=== PATIENT | male | born 1935 | race Caucasian/White ===

== ENCOUNTER 2018-03-26 13:08 | Inpatient (IN) ==
[2018-03-26] MEDS ORDERED: Norepinephrine Inj 4 MG/4 ML Ampul ONE (13:23)
[2018-03-26 13:33] LABS: Baso # (Auto) 0.1 th/mm3 (0.0-0.2); Baso % (Auto) 0.8 % (0.0-2.0); Eos # (Auto) 0.1 th/mm3 (0.0-0.4); Eos % (Auto) 0.9 % (0.0-4.0); Hematocrit 35.6 % (39.0-51.0); Hemoglobin 12.3 gm/dL (13.0-17.0); Lymph # (Auto) 3.1 th/mm3 (1.0-4.8); Lymph % (Auto) 29.4 % (9.0-44.0); Mean Corpuscular HGB Conc 34.6 % (32.0-36.0); Mean Corpuscular Hemoglobin 32.8 pg (27.0-34.0); Mean Corpuscular Volume 94.8 fL (80.0-100.0); Mean Platelet Volume 9.4 fL (7.0-11.0); Mono # (Auto) 0.9 th/mm3 (0.0-0.9); Mono % (Auto) 8.9 % (0.0-8.0); Neut # (Auto) 6.3 th/mm3 (1.8-7.7); Platelet Count 238 th/mm3 (150-450); Red Blood Count 3.76 mil/mm3 (4.50-5.90); Red Cell Distribution Width 13.9 % (11.6-17.2); White Blood Count 10.4 th/mm3 (4.0-11.0)
[2018-03-26 13:34] LABS: ABG Base Excess 5.2 mmol/L (-2-2); ABG PCO2 27 mmHg (38-42); ABG PO2 389 mmHg (61-120)
--- NOTE | 2018-03-26 13:36 | XR ---
EXAM DATE: 03/26/2018 1:33 PM EDT AGE/SEX: 89 years / Male INDICATIONS: Trauma Alert Post Code CLINICAL DATA: This is the patient's initial encounter. Patient reports that signs and symptoms have been present for 1 day and indicates a pain score of Nonresponsive. MEDICAL/SURGICAL HISTORY: Non-responsive. Non-responsive. COMPARISON: No prior exams available for comparison. FINDINGS: ETT at the level of the clavicles. Mild diffuse interstitial prominence. No significant pneumothorax or effusion. Cardiomediastinal contours are within normal limits given the portable technique. Osseou s structures are grossly intact. CONCLUSION: 1. ETT in good position. 2. No acute traumatic abnormality. Electronically signed by: Cristian Martinez MD 03/26/2018 1:35 PM EDT
[2018-03-26 13:42] LABS: Activated Partial Thrombo Time 25.3 sec (24.3-30.1); INR 1.2 Ratio; Prothrombin Time 11.7 sec (9.8-11.6)
--- NOTE | 2018-03-26 13:55 | CT ---
EXAM DATE: 03/26/2018 1:50 PM EDT AGE/SEX: 89 years / Male INDICATIONS: Fall, trauma alert CLINICAL DATA: This is the patient's initial encounter. Patient reports that signs and symptoms have been present for 1 day and indicates a pain score of Nonresponsive. MEDICAL/SURGICAL HISTORY: None. None. RADIATION DOSE: 66.59 CTDI (mGy) COMPARISON: No prior exams available for comparison. TECHNIQUE: CT of the head without contrast. Using automated exposure control and adjustment of the mA and/or kV according to patient size, radiation dose was kept as low as reasonably achievable to ob tain optimal diagnostic quality images. DICOM format image data is available electronically for revi ew and comparison. FINDINGS: Cerebrum: Diffuse prominence of the ventricles, sulci, and cisterns indicating diffuse atrophy. No e vidence of acute intracranial hemorrhage or extra-axial fluid collection. Prominent periventricular w maria esther matter hypodensity bilaterally indicating chronic ischemic change. Evidence of old insult in the right cerebellar hemisphere. Evidence of old insult in the posterior right occipital lobe. Posterior Fossa: The cerebellum and brainstem are intact. The 4th ventricle is midline. The cerebe llopontine angle is unremarkable. Extracranial: The visualized portion of the orbits is intact. Skull: The calvaria is intact. No evidence of skull fracture. CONCLUSION: 1. No acute intracranial findings. 2. Prominent age-related findings with diffuse atrophy and chronic ischemic change. . Electronically signed by: Amandeep Batista MD 03/26/2018 1:53 PM EDT
[2018-03-26 14:01] LABS: Eosinophils 1 % (0-4); Lymphocytes 19 % (9-44); Metamyelocytes 1 % (0-1); Monocytes 5 % (0-8); Myelocytes 1 % (0-0); Ovalocytes 1+; Promyelocyte 1 % (0-0)
[2018-03-26 14:02] LABS: Platelet Estimate Normal (Normal); Platelet Morphology Normal (Normal)
--- NOTE | 2018-03-26 14:07 | ED ---
HPI General Stated complaint: Trauma Time Seen by Provider: 03/26/18 13:52 History of Present Illness HPI narrative: Patient is approximately 82-year-old male presents emergency department as a trauma alert. History somewhat limited on arrival while provided by EMS, according to EMS the patient was not acting right this morning , he went into the kitchen and then fell heard by his she ran into the find him unconscious and called 911. He arrived by air 1, they reported the patient had coded on seen by fire department there and then was loaded onto their ambulance and then coded just prior to arrival as well. Patient was intubated prior to arrival. Additional history is initially very limited. According to EMS patient did have a history of an aneurysm in the past. Related Data Allergies Allergy/AdvReac Type Severity Reaction Status Date / Time No Allergy Information Allergy Unverified 03/26/18 13:09 Available Review of Systems ROS: all other systems reviewed are negative Exam Narrative Exam Narrative: GENERAL: Well-developed well-nourished elderly male intubated unconscious apneic except for [id number] pulseless. Chest compressions in progress. SKIN: Focused skin assessment warm/dry there is a small abrasion to the left forehead. HEAD: Normocephalic, abrasion to left forehead as above EYES: Pupils equal and round. No scleral icterus. No injection or drainage. ENT: No nasal bleeding or discharge. Mucous membranes pink and moist. NECK: Trachea midline. No JVD. CARDIOVASCULAR: Pulseless RESPIRATORY: Which she has done which she has dealt with chronically apneic except for [id number] GASTROINTESTINAL: Abdomen soft, non-tender, nondistended. Hepatic and splenic margins not palpable. MUSCULOSKELETAL: No obvious deformities. No clubbing. No cyanosis. No edema. NEUROLOGICAL: GCS of 3 PSYCHIATRIC: Unable to assess Course Initial Documented Vital Signs Pulse Oximetry 97 03/26/18 13:55 Last Documented Vital Signs Pulse Rate 122 H 03/26/18 15:54 Respiratory Rate 23 03/26/18 16:44 Blood Pressure 128/94 H 03/26/18 15:54 Pulse Oximetry 92 L 03/26/18 16:44 Medical Decision Making MDM Narrative Medical decision making narrative: Full note to follow, this is an 82-year-old male presents emergency department after cardiac arrest. Patient apparently was not feeling well prior to presentation and had a code on scene, as a ground level fall was activated as a trauma alert, he flew here and coded twice in the emergency department for a total of about 10 minutes. Patient did have some ectopy which he was stringing together and short runs of V. tach, initial return of spontaneous circulation, amiodarone was given, epinephrine he again had loss of pulses and then again had return of spontaneous circulation. EKG shows no signs of active ischemia. Patient's CAT scan of the head neck chest abdomen pelvis did not show any evidence of traumatic injury on Dr. August and my own wet read. Cleared by Dr. Spence for medical admission, discussed with Dr. Chacko. Prognosis is guarded. Patient was then discussed with Dr. Chacko, x-ray readings are being returned and does show the patient has significant fracture of C5 the 3 of us then discussed the patient and will be admitted to medical service with trauma following, MRIs have been ordered. Patient is now showing some myoclonic spasms to the left lower extremity. Does not have any purposeful movement at this time. Then had an extensive conversation with the patient's , she relates that the patient has had syncopal episodes and she watched him as he slumped forward , he hit his head and had his neck a very awkward position for an extended period of time. She states this is not an unexpected event for him today. Medical Screen Exam Complete: Yes Emergency Medical Condition: Yes Lab Data Result diagrams: 03/26/18 13:10 03/26/18 13:10 Lab Results 03/26/18 03/26/18 03/26/18 Range/Units 13:10 13:10 13:10 WBC 10.4 (4.0-11.0) th/mm3 RBC 3.76 L (4.50-5.90) mil/mm3 Hgb 12.3 L (13.0-17.0) gm/dL POC Hgb (Calc) 11.6 L (13.0-17.0) g/dL Hct 35.6 L (39.0-51.0) % POC Hct 34.0 L (39-51.0) % MCV 94.8 (80.0-100.0) fL MCH 32.8 (27.0-34.0) pg MCHC 34.6 (32.0-36.0) % RDW 13.9 (11.6-17.2) % Plt Count 238 (150-450) th/mm3 MPV 9.4 (7.0-11.0) fL Prelim Diff (Auto) Slide review pending Neut % (Auto) 60.0 (16.0-70.0) % Lymph % (Auto) 29.4 (9.0-44.0) % [place] % (Auto) 8.9 H (0.0-8.0) % Eos % (Auto) 0.9 (0.0-4.0) % Baso % (Auto) 0.8 (0.0-2.0) % Neut # (Auto) 6.3 (1.8-7.7) th/mm3 Lymph # (Auto) 3.1 (1.0-4.8) th/mm3 [place] # (Auto) 0.9 (0.0-0.9) th/mm3 Eos # (Auto) 0.1 (0.0-0.4) th/mm3 Baso # (Auto) 0.1 (0.0-0.2) th/mm3 WBC Differential Manual diff final Seg Neuts % (Manual) 68 (16-70) % Band Neuts % (Manual) 4 (0-6) % Lymphocytes % (Manual) 19 (9-44) % Monocytes % (Manual) 5 (0-8) % Eosinophils % (Manual) 1 (0-4) % Metamyelocytes % (Man) 1 (0-1) % Myelocytes % (Man) 1 H (0-0) % Promyelocytes % (Man) 1 H (0-0) % Abs Neuts (Manual) 7.8 H (1.8-7.7) th/mm3 Differential Comment . Platelet Estimate Normal (Normal) Platelet Morphology Normal (Normal) Ovalocytes 1+ H (None) PT 11.7 H (9.8-11.6) sec INR 1.2 Ratio APTT 25.3 (24.3-30.1) sec Puncture Site Patient Temperature O2 Saturation (90-100) % ABG pH (7.380-7.420) ABG pCO2 (38-42) mmHg ABG pO2 (61-120) mmHg ABG HCO3 (22-26) mmol/L ABG O2 Content (12.0-20.0) Vol % ABG Base Excess (-2-2) mmol/L ABG Methemoglobin (0-2) % Merlin Test Hemoglobin (12.0-16.0) G/DL Carboxyhemoglobin (0-4) % O2 Delivery Device Liter Flow L/M Inspired O2 % Critical Value POC Sodium 142 (137-144) mmol/L POC Potassium 4.7 (3.6-5.0) mmol/L POC Chloride 110 (102-111) mmol/L POC BUN 22 H (5-21) mg/dL POC Creatinine 1.6 H (0.6-1.3) mg/dL POC Glucose 169 H (68-110) mg/dL Troponin I (0.02-0.05) ng/mL Blood Type Antibody Screen MTS Gel Crossmatch 03/26/18 03/26/18 03/26/18 Range/Units 13:10 13:10 13:28 WBC (4.0-11.0) th/mm3 RBC (4.50-5.90) mil/mm3 Hgb (13.0-17.0) gm/dL POC Hgb (Calc) (13.0-17.0) g/dL Hct (39.0-51.0) % POC Hct (39-51.0) % MCV (80.0-100.0) fL MCH (27.0-34.0) pg MCHC (32.0-36.0) % RDW (11.6-17.2) % Plt Count (150-450) th/mm3 MPV (7.0-11.0) fL Prelim Diff (Auto) Neut % (Auto) (16.0-70.0) % Lymph % (Auto) (9.0-44.0) % [place] % (Auto) (0.0-8.0) % Eos % (Auto) (0.0-4.0) % Baso % (Auto) (0.0-2.0) % Neut # (Auto) (1.8-7.7) th/mm3 Lymph # (Auto) (1.0-4.8) th/mm3 [place] # (Auto) (0.0-0.9) th/mm3 Eos # (Auto) (0.0-0.4) th/mm3 Baso # (Auto) (0.0-0.2) th/mm3 WBC Differential Seg Neuts % (Manual) (16-70) % Band Neuts % (Manual) (0-6) % Lymphocytes % (Manual) (9-44) % Monocytes % (Manual) (0-8) % Eosinophils % (Manual) (0-4) % Metamyelocytes % (Man) (0-1) % Myelocytes % (Man) (0-0) % Promyelocytes % (Man) (0-0) % Abs Neuts (Manual) (1.8-7.7) th/mm3 Differential Comment Platelet Estimate (Normal) Platelet Morphology (Normal) Ovalocytes (None) PT (9.8-11.6) sec INR Ratio APTT (24.3-30.1) sec Puncture Site Left radial Patient Temperature 98.6 O2 Saturation 99 (90-100) % ABG pH 7.61 H* (7.380-7.420) ABG pCO2 27 L (38-42) mmHg ABG pO2 389 H (61-120) mmHg ABG HCO3 27 H (22-26) mmol/L ABG O2 Content 16.8 (12.0-20.0) Vol % ABG Base Excess 5.2 H (-2-2) mmol/L ABG Methemoglobin 0.4 (0-2) % Merlin Test Present Hemoglobin 11.5 L (12.0-16.0) G/DL Carboxyhemoglobin 1.1 (0-4) % O2 Delivery Device Ambu Liter Flow 15.00 L/M Inspired O2 100 % Critical Value Yes POC Sodium (137-144) mmol/L POC Potassium (3.6-5.0) mmol/L POC Chloride (102-111) mmol/L POC BUN (5-21) mg/dL POC Creatinine (0.6-1.3) mg/dL POC Glucose (68-110) mg/dL Troponin I 0.02 (0.02-0.05) ng/mL Blood Type A Positive Antibody Screen Negative MTS Gel Crossmatch See Detail Imaging Data Radiologist's impression: Cervical Spine MRI 03/26/18 00:00 CONCLUSION: 1. Findings indicating cervical hyperextension injury with anterior and posterior soft tissue edema as well as fluid and anterior widening of the C5-6 intervertebral disc. 2 mm retrolisthesis of C5 on C6. Moderate severity central canal stenosis and prominent spinal cord signal abnormality suggesting spinal cord contusion. 2. Multilevel degenerative findings of the cervical spine. Chest X-Ray 03/26/18 13:10 CONCLUSION: 1. ETT in good position. 2. No acute traumatic abnormality. Abdomen/Pelvis CT 03/26/18 13:13 CONCLUSION: 1. Age-indeterminate compression fracture deformities of T11 and L1. 2. Distal abdominal aortic aneurysm. 3. Status post cholecystectomy. Cervical Spine CT 03/26/18 13:13 CONCLUSION: 1. Findings indicating ligamentous injury at C5-6. There is widening of the disc anteriorly at this level as well as widening of the facet joints left greater than right at this level. 2. Nondisplaced spinous process fracture of C5. Prominent soft tissue edema in the interspinous soft tissues at C5-6. Prevertebral soft tissue edema also noted at C5-6. 3. Multilevel degenerative findings with mild to moderate central canal narrowing at C5-6. Chest CT 03/26/18 13:13 CONCLUSION: Left rib fractures and spinal compressive injuries Face CT 03/26/18 13:13 CONCLUSION: Comminuted nasal bone fracture, age indeterminate. Head CT 03/26/18 13:13 CONCLUSION: 1. No acute intracranial findings. 2. Prominent age-related findings with diffuse atrophy and chronic ischemic change. . Lumbar Spine CT 03/26/18 13:13 CONCLUSION: Severe compressive deformity at L1 with slight dorsal bony retropulsion. Minimal canal compromise. Degenerative changes throughout elsewhere. Thoracic Spine CT 03/26/18 13:13 CONCLUSION: Compressive injuries at several levels as described above. Head MRI 03/26/18 14:20 CONCLUSION: 1. 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 Findings involve the parietal-occipital lobes of the cerebral hemispheres as well as the cerebellar hemispheres bilaterally. 2. Multiple small hypointense foci on susceptibility weighted images indicating microhemorrhages. May be related to chronic hypertension or cerebral amyloid angiopathy. No acute hemorrhage identified on CT. Discharge Plan Discharge Disposition Patient Disposition: 30 Still Patient Discharge Condition Condition: Critical Discharge Details Diagnosis: Syncope, Fracture of cervical vertebra, C5, Coma, Cardiac arrest Physicians Team ED Provider: Malvin Galvez Primary Care Provider: UNKNOWN, Attending Provider: Kenan Tony Discharge Interventions Interventions: ED Discharge Assessment Last Done: 03/26/18 16:43 Status ED Status: Left Department Discharge Information Discharge Date/Time: 03/26/18 16:40
--- NOTE | 2018-03-26 14:10 | CT ---
EXAM DATE: 03/26/2018 1:58 PM EDT AGE/SEX: 89 years / Male INDICATIONS: Fall, Trauma alert CLINICAL DATA: This is the patient's initial encounter. Patient reports that signs and symptoms have been present for 1 day and indicates a pain score of Nonresponsive. MEDICAL/SURGICAL HISTORY: Non-responsive. Non-responsive. RADIATION DOSE: 17.54 CTDI (mGy) COMPARISON: No prior exams available for comparison. TECHNIQUE: Contiguous axial images were obtained using helical multirow detector technique. The vol umetric data was post-processed with multiplanar reconstruction in oblique axial, sagittal, and coron al planes. Using automated exposure control and adjustment of the mA and/or kV according to patient s ize, radiation dose was kept as low as reasonably achievable to obtain optimal diagnostic quality cherry ges. DICOM format image data is available electronically for review and comparison. FINDINGS: Vertebrae: There is a nondisplaced vertical spinous process fracture of C5. Alignment: Widening of the C5-6 facet joints left greater than right. Focal widening of the anterior aspect of the C5 intervertebral disc Bone alignment otherwise within normal limits. C2-3: The bony spinal canal is normal in size. No evidence of disc bulge or herniation. The neural foramina are bilaterally patent. C3-4: Broad-based disc osteophyte complex and bilateral facet arthrosis. Mild bilateral neural jorgito inal narrowing. Central canal diameter within normal limits. C4-5: Broad-based disc osteophyte complex right greater than left facet arthrosis. Mild bilateral ne ural foraminal narrowing. Central canal diameter within normal limits. C5-6: Broad-based disc osteophyte complex. Bilateral facet arthrosis. Severe bilateral neural forami nal narrowing. Mild to moderate central canal narrowing. C6-7: Broad-based disc osteophyte complex. Mild central canal narrowing. Moderate bilateral neural f oraminal narrowing. C7-T1: Prominent left-sided facet arthrosis. Central canal diameter within normal limits. Neural for aminal diameters within normal limits. CONCLUSION: 1. Findings indicating ligamentous injury at C5-6. There is widening of the disc anteriorly at this level as well as widening of the facet joints left greater than right at this level. 2. Nondisplaced spinous process fracture of C5. Prominent soft tissue edema in the interspinous soft tissues at C5-6. Prevertebral soft tissue edema also noted at C5-6. 3. Multilevel degenerative findings with mild to moderate central canal narrowing at C5-6. Electronically signed by: Amandeep Batista MD 03/26/2018 2:08 PM EDT
--- NOTE | 2018-03-26 14:13 | CT ---
EXAM DATE: 03/26/2018 1:59 PM EDT AGE/SEX: 89 years / Male INDICATIONS: Fall, trauma alert CLINICAL DATA: This is the patient's initial encounter. Patient reports that signs and symptoms have been present for 1 day and indicates a pain score of Nonresponsive. MEDICAL/SURGICAL HISTORY: Non-responsive. Non-responsive. RADIATION DOSE: 21.96 CTDI (mGy) COMPARISON: No prior exams available for comparison. TECHNIQUE: Contiguous images in the axial and coronal planes were obtained using helical multirow de tector technique. Using automated exposure control and adjustment of the mA and/or kV according to p atient size, radiation dose was kept as low as reasonably achievable to obtain optimal diagnostic kim lity images. DICOM format image data is available electronically for review and comparison. FINDINGS: Comminuted nasal bone fracture with multiple smoothly marginated calcific densities. The fracture is age-indeterminate. Orbits are intact. Paranasal sinuses are clear. No other fracture identified. CONCLUSION: Comminuted nasal bone fracture, age indeterminate. Electronically signed by: Amandeep Batista MD 03/26/2018 2:12 PM EDT
--- NOTE | 2018-03-26 14:16 | CT ---
EXAM DATE: 03/26/2018 2:00 PM EDT AGE/SEX: 89 years / Male INDICATIONS: Fall, trauma alert CLINICAL DATA: This is the patient's initial encounter. Patient reports that signs and symptoms have been present for 1 day and indicates a pain score of 10/10. MEDICAL/SURGICAL HISTORY: Non-responsive. Non-responsive. RADIATION DOSE: 9.96 CTDI (mGy) ; Combined studies COMPARISON: No prior exams available for comparison. TECHNIQUE: Multiple contiguous axial images were obtained through the chest during bolus infusion of 93ML ml Omnipaque 350 (iohexol) nonionic water-soluble contrast as a single exam dose. Images wer e obtained in suspended respiration using multiple row detector helical technique. Using automated e xposure control and adjustment of the mA and/or kV according to patient size, radiation dose was kept as low as reasonably achievable to obtain optimal diagnostic quality images. DICOM format image royal a is available electronically for review and comparison. FINDINGS: Lungs: Minimal bilateral dependent posterior lung atelectasis. Mediastinum: There is good visualization of the great vessels of the middle mediastinum. No evidenc e of mediastinal or hilar adenopathy/mass. Pleurae: No significant hemothorax or pneumothorax Axillae: Unremarkable. Bony Structures: Multiple angulated and mildly displaced anterolateral left rib fractures. Mild mare rity sub-superior endplate compressive injury at T11. Minimal biconcave compressive injury at T7. Sev ere partly nonacute appearing compressive injury at L1 CONCLUSION: Left rib fractures and spinal compressive injuries Electronically signed by: Juan J Davis MD 03/26/2018 2:15 PM EDT
--- NOTE | 2018-03-26 14:20 | CT ---
EXAM DATE: 03/26/2018 2:02 PM EDT AGE/SEX: 89 years / Male INDICATIONS: Fall, Trauma Alert CLINICAL DATA: This is the patient's initial encounter. Patient reports that signs and symptoms have been present for 1 day and indicates a pain score of Nonresponsive. MEDICAL/SURGICAL HISTORY: Non-responsive. Non-responsive. ORAL CONTRAST: No oral contrast ingested. RADIATION DOSE: 9.96 CTDI (mGy) ; Combined studies COMPARISON: No prior exams available for comparison. TECHNIQUE: Multiple contiguous axial images were obtained through the abdomen and pelvis following b olus infusion of 93ML ml Omnipaque 350 (iohexol) nonionic water-soluble contrast as a single exam d ose. No oral contrast ingested. Using automated exposure control and adjustment of the mA and/or kV according to patient size, radiation dose was kept as low as reasonably achievable to obtain optimal diagnostic quality images. DICOM format image data is available electronically for review and compar alejandro. FINDINGS: Lower Lungs: Atelectasis at the lung bases right greater than left. Liver: Cholecystectomy clips. Liver is homogeneous and within normal limits. Spleen: Homogeneous density without enlargement. Pancreas: Unremarkable without mass or calcification. Kidneys: Normal in size and shape. No evidence of mass or hydronephrosis. Adrenal Glands: Unremarkable. Aorta: Distal abdominal aortic aneurysm measuring 3.5 cm in maximum AP dimension. Diffuse atheroscl erotic disease. Bowel/Mesentery: No evidence of bowel dilatation. No free air or free fluid. Appendix within normal limits. Abdominal Wall: Intact. Retroperitoneum: No evidence of adenopathy in the retrocrural, para-aortic, or deep pelvic regions. Bladder: Contours are smooth. Reproductive Organs: Prostate calcifications. Inguinal: The inguinal region is unremarkable without evidence of adenopathy. Bony Structures: Mild osteoarthritic findings of the hips. Age-indeterminate compression fracture de formities of the T11 vertebral body in the lower thoracic spine and L1 vertebral body of the lumbar s pine. Mildly decreased height at T11 (approximately 20%) and moderately decreased height anteriorly a t L1 (approximately 60%). There is mild sclerosis of these vertebral bodies as well. CONCLUSION: 1. Age-indeterminate compression fracture deformities of T11 and L1. 2. Distal abdominal aortic aneurysm. 3. Status post cholecystectomy. Electronically signed by: Amandeep Batista MD 03/26/2018 2:18 PM EDT
--- NOTE | 2018-03-26 14:20 | CT ---
EXAM DATE: 03/26/2018 2:13 PM EDT AGE/SEX: 89 years / Male INDICATIONS: Fall, Trauma alert CLINICAL DATA: This is the patient's initial encounter. Patient reports that signs and symptoms have been present for 1 day and indicates a pain score of Nonresponsive. MEDICAL/SURGICAL HISTORY: Non-responsive. Non-responsive. RADIATION DOSE: 0 CTDI (mGy) ; Reconstructed from previous dataset, no dose COMPARISON: [facility] [place], CT CHEST W CONTRAST, 03/26/2018. . TECHNIQUE: Contiguous axial images were acquired using a multirow detector CT scanner after intraven ous administration of 93 ml Omnipaque 350 (iohexol) nonionic water-soluble contrast as a cumulative dose for multiple exams. Multiplanar reconstruction in the sagittal and coronal planes was performe d. Using automated exposure control and adjustment of the mA and/or kV according to patient size, ra diation dose was kept as low as reasonably achievable to obtain optimal diagnostic quality images. D ICOM format image data is available electronically for review and comparison. FINDINGS: Thoracic spine alignment is satisfactory. There is a minimal severity biconcave compressive injury at T7, age indeterminate without significant anatomic compromise. A mild mainly superior compressive in jury present at T11 which appears likely acute. No evidence of retropulsion. Severe mixed age breast injury at L1 with mild associated kyphotic angulation. Slight retropulsion of upper vertebral body bra[place] ne with minimal associated canal compromise. No evidence of significant paraspinal hematoma. CONCLUSION: Compressive injuries at several levels as described above. Electronically signed by: Juan J Davis MD 03/26/2018 2:18 PM EDT
--- NOTE | 2018-03-26 14:23 | CT ---
EXAM DATE: 03/26/2018 2:15 PM EDT AGE/SEX: 89 years / Male INDICATIONS: Fall, Trauma Alert CLINICAL DATA: This is the patient's initial encounter. Patient reports that signs and symptoms have been present for 1 day and indicates a pain score of Nonresponsive. MEDICAL/SURGICAL HISTORY: Non-responsive. Non-responsive. RADIATION DOSE: 0 CTDI (mGy) ; Reconstructed from previous dataset, no dose COMPARISON: [facility] – [place], CT CERVICAL SPINE W/O CONTRAST, 03/26/2018. . TECHNIQUE: Contiguous axial images were acquired with a multirow detector CT scanner after intraveno us administration of 93ML ml Omnipaque 350 (iohexol) nonionic water-soluble contrast as a cumulative dose for multiple exams. Multiplanar reconstructions in the sagittal and coronal plane were also pe rformed. Using automated exposure control and adjustment of the mA and/or kV according to patient siz e, radiation dose was kept as low as reasonably achievable to obtain optimal diagnostic quality image s. DICOM format image data is available electronically for review and comparison. FINDINGS: There is mild kyphotic accentuation associated with a mixed age severe compressive deformity at L1. T here is slight dorsal displacement of upper vertebral body margin with a slight degree of canal compr omise. The other levels are intact. There is moderate to moderately severe disc degeneration througho ut with disc space narrowing most severely present at L4-5. Broad dorsal disc protrusion and ligament ous hypertrophy appear to produce a moderate degree of lumbar canal stenosis. There is no evidence of paraspinal hematoma. CONCLUSION: Severe compressive deformity at L1 with slight dorsal bony retropulsion. Minimal canal compromise. De generative changes throughout elsewhere. Electronically signed by: Juan J Davis MD 03/26/2018 2:22 PM EDT
[2018-03-26] MEDS ORDERED: Sodium Phosphate Inj 30 MMOL in Sodium Chlor 0.9% Inj 250 ML IV.SIG PRN (14:24)
[2018-03-26] MEDS ORDERED: Magnesium Sulfate Inj 4 GM in Sodium Chlor 0.9% Inj 92 ML IV.SIG PRN (14:24)
[2018-03-26] MEDS ORDERED: Potassium Phosphate 500 MG Soluble Tablet PO PRN ×2 (14:24)
[2018-03-26] MEDS ORDERED: Potassium Chlor 40 mEq Premix 40 MEQ/100 ML PIGGYBACK IV.SIG PRN ×2 (14:24)
[2018-03-26] MEDS ORDERED: Potassium Phosphate Inj 30 MMOL in Sodium Chlor 0.9% Inj 250 ML IV.SIG PRN (14:24)
[2018-03-26] MEDS ORDERED: Potassium Chlor 20 mEq Premix 20 MEQ/100 ML PIGGYBACK IV.SIG PRN ×2 (14:24)
[2018-03-26] MEDS ORDERED: Magnesium Sulfate Inj 2 GM in Sodium Chlor 0.9% Inj 96 ML IV.SIG PRN (14:24)
[2018-03-26] MEDS ORDERED: Acetaminophen 325 MG Tablet PO PRN (14:24)
[2018-03-26] MEDS ORDERED: Bisacodyl 10 MG Supp RECTAL PRN (14:24)
[2018-03-26] MEDS ORDERED: Magnesium Oxide 400 MG Tablet PO PRN (14:24)
[2018-03-26] MEDS ORDERED: Potassium Chloride 25 MEQ Effervescent Tablet PO PRN (14:24)
--- NOTE | 2018-03-26 14:32 | P.HPCC ---
History of Present Illness Primary Care Physician: UNKNOWN History of Present Illness: This is an 82yM who comes in as a trauma alert for fall with injury. Per his , he was standing and trying to get up for "more coffee" when he suddenly became unstable and fell. She states he hit his head on the cabinet and he fell to the ground. His states that "his body pressed up against his head, and his neck was bent backwards in a very unnatural way." When EMS arrived, he was in cardiac arrest and ACLS was initiated. patient experienced 2 episodes of cardiac arrest in the [id number] setting, and then an additional 3rd episode in the ED. ROSC was obtained and the patient was placed on vasopressors. He was taken to CT scan which demonstrated C5 spinous process fracture and ligamentous injury at C5-6. he was then taken to MRI which demonstrated multiple posterior fossa acute ischemic events as well as acute cord contusion at C5. In addition, he was taken for CTA head/neck which demonstrated bilateral acutely thrombosed vertebral arteries with a basilar tip thrombus as well. When I evaluated the patient, his pupils were 2mm fixed and non-reactive. He has never received any sedating or paralyzing medications since EMS arrived. His GCS is 5 (E1V1M3) with flexor posturing of the lower extremities but no movement in the upper extremities to painful stimuli. He has no cough or gag. +corneals. I had multiple long discussions with his where I explained that he suffered a significant spinal cord injury, multiple significant strokes, and likely significant anoxic brain injury from multiple rounds of cardiac arrest. I explained medically aggressive therapy including anticoagulation or intervention for the strokes, neurology and neurosurgical consultation, and vasopressors and life support. The declined all these interventions, stating "he was clear that he would not want any of this." We discussed further, and she states his goals of care were clear and he did not wish to be placed on life support or have any sort of aggressive treatment in this case. At her request, we will not treat him aggressively, but will transition our goals to comfort and palliation. I have spoken again with Dr. Galvez from the emergency department who admitted the patient to my service who agrees that this constellation of symptoms is a terminal event for this 82 year old man, and agrees that palliation is appropriate. No information is available from the patient due to his clinical condition. ROS unobtainable. Inpatient Certification: I certify that the inpatient services were ordered in accordance with Medicare regulations governing the order. This includes certification that hospital inpatient services are reasonable and necessary and in the case of services not specified as inpatient-only under 42 CFR 419.22(n), that they are appropriately provided as inpatient services in accordance to with the 2-midnight benchmark under 43 CFR 412.3(e) Estimated Total Length of Stay (Days): 7 Plans for Post Hospital Care: Not yet determined Review of Systems unobtainable due to endotracheal tube, unobtainable due to mental status PMFSH - Medical / Surgical Hx Neg / Unobtainable Medical Problems Denied: Unable to Obtain Surgical History: Unable to Obtain Medications and Allergies Active Medications: Active Medications Lactated Ringer's (Lr 1000 Ml Inj) 1,000 mls @ 1,000 mls/hr IV.SIG .Q1H SHIRA Stop: 03/26/18 15:59 Allergies Allergy/AdvReac Type Severity Reaction Status Date / Time No Allergy Information Allergy Unverified 03/26/18 13:09 Available Results - Labs CBC & Chem 7: 03/26/18 13:10 03/26/18 13:10 Labs: Short CBC 03/26/18 Range/Units 13:10 WBC 10.4 (4.0-11.0) th/mm3 Hgb 12.3 L (13.0-17.0) gm/dL Hct 35.6 L (39.0-51.0) % Plt Count 238 (150-450) th/mm3 Cardiac Enzymes 03/26/18 Range/Units 13:10 Troponin I 0.02 (0.02-0.05) ng/mL - Imaging Impressions Chest X-Ray 03/26/18 13:10 CONCLUSION: 1. ETT in good position. 2. No acute traumatic abnormality. Abdomen/Pelvis CT 03/26/18 13:13 CONCLUSION: 1. Age-indeterminate compression fracture deformities of T11 and L1. 2. Distal abdominal aortic aneurysm. 3. Status post cholecystectomy. Cervical Spine CT 03/26/18 13:13 CONCLUSION: 1. Findings indicating ligamentous injury at C5-6. There is widening of the disc anteriorly at this level as well as widening of the facet joints left greater than right at this level. 2. Nondisplaced spinous process fracture of C5. Prominent soft tissue edema in the interspinous soft tissues at C5-6. Prevertebral soft tissue edema also noted at C5-6. 3. Multilevel degenerative findings with mild to moderate central canal narrowing at C5-6. Chest CT 03/26/18 13:13 CONCLUSION: Left rib fractures and spinal compressive injuries Face CT 03/26/18 13:13 CONCLUSION: Comminuted nasal bone fracture, age indeterminate. Head CT 03/26/18 13:13 CONCLUSION: 1. No acute intracranial findings. 2. Prominent age-related findings with diffuse atrophy and chronic ischemic change. . Lumbar Spine CT 03/26/18 13:13 CONCLUSION: Severe compressive deformity at L1 with slight dorsal bony retropulsion. Minimal canal compromise. Degenerative changes throughout elsewhere. Thoracic Spine CT 03/26/18 13:13 CONCLUSION: Compressive injuries at several levels as described above. Exam Vital signs: Vital Signs 03/26/18 13:55 03/26/18 13:59 Respiratory Rate 18 Pulse Oximetry 99 100 Narrative: gen: elderly male, lying in bed, unresponsive. heent: nc. at. pupils 2mm, equal, nonreactive. mucous membranes moist. neck: no jvd. trachea midline. c-collar in place chest: equal chest rise. PRVC. 40% fio2. peep 5. cv: tachycardic rate of 120, irregularly irregular rhythm. afib. on levophed at 10 mcg/min abd: soft, nontender, nondistended, no guarding. extr: distal pulses 2+. no edema. neuro: GCS 5 (E1V1M3). no movement to painful stimuli in the upper extremities. flexor posturing in the lower extremities. - cough. - gag. + corneals. Caprini VTE Risk Assessment Caprini VTE Risk Assessment: Moderate/High Risk (score >= 2) Caprini Risk Assessment Model: Point Value = 1 Point Value = 2 Point Value = 3 Point Value = 5 Age 41-60 Minor surgery BMI > 25 kg/m2 Swollen legs Varicose veins or History of unexplained or recurrent spontaneous Oral contraceptives or hormone replacement Sepsis (< 1 month) Serious lung disease, including pneumonia (< 1 month) Abnormal pulmonary function Acute myocardial infarction Congestive heart failure (< 1 month) History of inflammatory bowel disease Medical patient at bed rest Age 61-74 Arthroscopic surgery Major open surgery (> 45 min) Laparoscopic surgery (> 45 min) Malignancy Confined to bed (> 72 hours) Immobilizing plaster cast Central venous access Age >= 75 History of VTE Family history of VTE Factor V Leiden Prothrombin [id number] Lupus anticoagulant Anticardiolipin antibodies Elevated serum homocysteine Heparin-induced thrombocytopenia Other congenital or acquired thrombophilia Stroke (< 1 month) Elective arthroplasty Hip, pelvis, or leg fracture Acute spinal cord injury (< 1 month) Prophylaxis Regimen: Total Risk Factor Score Risk Level Prophylaxis Regimen 0-1 Low Early ambulation 2 Moderate Order ONE of the following: *Sequential Compression Device (SCD) *Heparin 5000 units SQ BID 3-4 Higher Order ONE of the following medications: *Heparin 5000 units SQ TID *Enoxaparin/Lovenox 40 mg SQ daily (WT < 150 kg, CrCl > 30 mL/min) *Enoxaparin/Lovenox 30 mg SQ daily (WT < 150 kg, CrCl > 10-29 mL/min) *Enoxaparin/Lovenox 30 mg SQ BID (WT < 150 kg, CrCl > 30 mL/min) AND/OR *Sequential Compression Device (SCD) 5 or more Highest Order ONE of the following medications: *Heparin 5000 units SQ TID (Preferred with Epidurals) *Enoxaparin/Lovenox 40 mg SQ daily (WT < 150 kg, CrCl > 30 mL/min) *Enoxaparin/Lovenox 30 mg SQ daily (WT < 150 kg, CrCl > 10-29 mL/min) *Enoxaparin/Lovenox 30 mg SQ BID (WT < 150 kg, CrCl > 30 mL/min) AND *Sequential Compression Device (SCD) Assessment and Plan - Assessment and Plan Plan: Assessment: 82yM with anoxic brain injury, significant C5 cord contusion with spinal cord injury, neurogenic shock, posterior fossa strokes, 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 Very critically ill. Active Problems: Acute encephalopathy Acute basilar artery CVA Acute bilateral vertebral artery occlusions Acute spinal cord injury Neurogenic Shock C5 cord contusion C5 spinous process fracture Anoxic brain injury Acute hypoxic and hypercarbic respiratory failure Plan: - admit to ICU - do not wean mechanical ventilation until improvement of neurologic function - after long discussion with family, will make DNR and plan to change goals to palliation - ativan and morphine prn for comfort. - DNR code status. Critical care time: 70 minutes. this time is exclusive of separately billable procedures. It only includes time spent while our goals were aggressive. This time was spent stabilizing hemodynamics, managing vasopressors, in the diagnosis , work-up, and management of acute CVA, spinal cord injury, anoxic brain injury , and the discussion and explanation of disease processes and prognosis with the family.
[2018-03-26] MEDS ORDERED: Heparin - SQ 10,000 UNITS/ML Vial SQ SCH (15:00)
[2018-03-26] MEDS ORDERED: Oral Hygiene Kit OROPHARYNG SCH (16:00)
--- NOTE | 2018-03-26 16:23 | MR ---
EXAM DATE: 03/26/2018 3:59 PM EDT AGE/SEX: 89 years / Male INDICATIONS: . Trauma. CLINICAL DATA: This is the patient's initial encounter. Patient reports that signs and symptoms have been present for 1 day and indicates a pain score of 0/10. MEDICAL/SURGICAL HISTORY: Aneurysm, intracranial. Dementia. Cholecystectomy. Knee. Nasal. [place] [facility] [place], 03/26/2018. . TECHNIQUE: Multiplanar, multisequence examination of the brain was performed without contrast. FINDINGS: Large areas of restricted diffusion in the cerebellar hemispheres bilaterally as well as in the poste rior parietal and occipital lobes bilaterally. Corresponding confirming areas of abnormality are seen on the ADC map images. Findings indicate symmetric bilateral posterior circulation distribution acut e infarcts. Corresponding mild signal abnormalities are seen on the T2-weighted images. No evidence o f mass effect or midline shift. Extensive bilateral periventricular chronic small vessel ischemic change. Multiple small scattered fo ci of magnetic susceptibility artifact is seen in the cerebral hemispheres and cerebellum with architectural modeler ior predominance. Findings likely represent areas of age-indeterminate. This finding is commonly seen with chronic hypertension. 3. Bilateral low-density off the can also have similar findings. No evidence of acute hemorrhage on C T. Diffuse prominence of ventricles and sulci indicating diffuse atrophy. No extra-axial fluid collectio ns. CONCLUSION: 1. 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 Fi ndings involve the parietal-occipital lobes of the cerebral hemispheres as well as the cerebellar hem ispheres bilaterally. 2. Multiple small hypointense foci on susceptibility weighted images indicating microhemorrhages. Ma y be related to chronic hypertension or cerebral amyloid angiopathy. No acute hemorrhage identified o n CT. Electronically signed by: Amandeep Batista MD 03/26/2018 4:22 PM EDT
--- NOTE | 2018-03-26 16:46 | MR ---
EXAM DATE: 03/26/2018 4:24 PM EDT AGE/SEX: 89 years / Male INDICATIONS: Trauma. Fall. CLINICAL DATA: This is the patient's initial encounter. Patient reports that signs and symptoms have been present for 1 day and indicates a pain score of 0/10. MEDICAL/SURGICAL HISTORY: Aneurysm, intracranial. Dementia. Afib Cholecystectomy. Knee replac ement. COMPARISON: [facility] – [place], [place] CERVICAL SPINE W/O CONTRAST, 03/26/2018. . TECHNIQUE: Multiplanar, multisequence MRI examination of the cervical spine was performed without co ntrast. FINDINGS: 2 mm retrolisthesis C5 on C6. Prominent interspinous and paraspinous soft tissue edema at C4-5 and C5 -6. Fluid is seen in the region of the C5-6 intervertebral disc and there is prevertebral soft tissue edema C4-5 and C5-6. Spinal cord signal abnormality the level of C5 and C6 measuring 2.3 cm in craniocaudal dimension. C2-C3: The thecal sac has a normal configuration. There is no evidence of disc herniation or spinal canal stenosis. The neural foramina are patent bilaterally. C3-C4: Broad-based disc osteophyte complex. Mild bilateral neural foraminal narrowing. Central canal diameter within normal limits. C4-C5: Broad-based disc osteophyte complex and right-sided facet arthrosis. Moderate right neural fo raminal narrowing. Effacement of the CSF anteriorly. Posteriorly CSF is visible. There is spinal cord signal abnormality beginning at this level. C5-C6: 2 mm retrolisthesis C5 on C6. Posterior interspinous soft tissue edema, widening of the inter vertebral disc anteriorly, anterior prevertebral soft tissue edema and fluid within the intervertebra l disc. Moderate severity central canal stenosis at this level with AP diameter of the central canal measuring 6 mm. There is effacement of the CSF anteriorly and posteriorly. Prominent spinal cord sign al abnormality extending from C4-5 to the mid C6 level. Moderate bilateral neural foraminal narrowing . C6-C7: Broad-based disc osteophyte complex. Effacement of the CSF anteriorly. Posteriorly CSF remain s visible. Moderate bilateral neural foraminal narrowing. C7-T1: Central canal diameter within normal limits. Neural foraminal diameters within normal limits. CONCLUSION: 1. Findings indicating cervical hyperextension injury with anterior and posterior soft tissue edema as well as fluid and anterior widening of the C5-6 intervertebral disc. 2 mm retrolisthesis of C5 on C6. Moderate severity central canal stenosis and prominent spinal cord signal abnormality suggesting spinal cord contusion. 2. Multilevel degenerative findings of the cervical spine. Electronically signed by: Amandeep Batista MD 03/26/2018 4:44 PM EDT
--- NOTE | 2018-03-26 17:21 | P.PCN ---
Procedure: Diagnosis: Distributive shock, hypotension Procedure: Insertion left subclavian vein central access line Narrative: Timeout performed and suitable identification obtained for patient. Neck stabilized in cervical collar. Left chest pain or with Chloraseptic and draped with sterile sheets. 1% Xylocaine infiltration anesthetic used in the infraclavicular region. Using a thin-walled needle the subclavian vein was cannulated and a wire was easily advanced into the central circulation. A dilator was passed over the wire and then the triple-lumen catheter was placed over the wire to a distance of 19 cm. Biopatch was applied and StatLock device was used to secure the catheter. Sterile dressing was applied. All lumens were easily aspirated and flushed. A chest x-ray was ordered to confirm position.
[2018-03-26 17:54] LABS: Alanine Aminotransferase 84 U/L (12-78); Albumin 2.7 g/dL (3.4-5.0); Anion Gap 12 meq/L (5-15); Aspartate Aminotransferase 134 U/L (15-37); Blood Urea Nitrogen 24 mg/dL (7-18); Carbon Dioxide 19.1 meq/L (21.0-32.0); Chloride 113 meq/L (98-107); Glomerular Filtration Rate 33 mL/min (>89); Glucose,Random 159 mg/dL (74-106); Potassium 4.8 meq/L (3.5-5.1); Sodium 144 meq/L (136-145)
[2018-03-26 17:57] LABS: Alkaline Phosphatase 174 U/L (45-117); Creatine Kinase 239 U/L (39-308); Total Protein 6.3 g/dL (6.4-8.2)
[2018-03-26] MEDS: Sod Chloride 0.9% Inj 1,000 ML IV.CONT SCH (18:10)
[2018-03-26 18:16] LABS: Creatine Kinase MB 3.9 ng/mL (0.5-3.6)
--- NOTE | 2018-03-26 18:29 | CT ---
EXAM DATE: 03/26/2018 6:04 PM EDT AGE/SEX: 89 years / Male INDICATIONS: Altered mental status, unresponsive. CLINICAL DATA: This is the patient's initial encounter. Patient reports that signs and symptoms have been present for 1 day and indicates a pain score of Nonresponsive. MEDICAL/SURGICAL HISTORY: Non-responsive. Non-responsive. RADIATION DOSE: 10.70 CTDI (mGy) ; Combined studies COMPARISON: No prior exams available for comparison. TECHNIQUE: Volumetric scanning was performed using a multi-row detector CT scanner during bolus infu michael of 75 ml Visipaque 320 (iodixanol) nonionic water-soluble contrast as a cumulative dose for mul tiple exams. The data was post processed with a variety of visualization algorithms including full volume maximum intensity projection, multi-planar sliding thin slab reformation, curved planar reform ation, and surface rendering techniques. Using automated exposure control and adjustment of the mA a nd/or kV according to patient size, radiation dose was kept as low as reasonably achievable to obtain optimal diagnostic quality images. DICOM format image data is available electronically for review a nd comparison. FINDINGS: There is excellent visualization of the major intracranial arteries out to the second-order branch ve ssels. Anterior circulation: After describing disease is identified in both carotid siphons. Internal carotid arteries are patent without evidence of occlusion or filling defects. An 8 mm saccular aneurysm is identified in the left middle cerebral artery at its bifurcation. There is no evidence of adjacent subarachnoid hemorrhage. The anterior and posterior cerebral arteries are otherwise unremarkable. Posterior circulation: Loss of contrast enhancement is identified in the proximal to mid vertebral arteries bilaterally. The proximal right vertebral artery demonstrates loss of flow at approximately the C6 level. The left ve rtebral artery demonstrates loss of flow at its origin. Reconstituted flow is identified in both vertebral arteries. The left vertebral artery demonstrates r econstituted flow at approximately the C4-C5 level. The right vertebral artery demonstrates reconstit uted flow at C4. The intracranial segment of the right vertebral artery is very small and appears to continue into PIC A.. The left vertebral artery supplies the basilar artery which is very small. Loss of contrast enhan cement is identified in the basilar tip with poor pacification of the posterior cerebral arteries juan ecially the left. CONCLUSION: 1. 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 2. 8mm left MCA aneurysm. 3. Mild after describing disease in the carotid siphons. 4. No other significant anterior circulation abnormality. Electronically signed by: Reno Vital MD 03/26/2018 6:28 PM EDT
--- NOTE | 2018-03-26 18:53 | CT ---
EXAM DATE: 03/26/2018 6:05 PM EDT AGE/SEX: 89 years / Male INDICATIONS: Altered mental status, unresponsive. CLINICAL DATA: This is the patient's initial encounter. Patient reports that signs and symptoms have been present for 1 day and indicates a pain score of Nonresponsive. MEDICAL/SURGICAL HISTORY: Non-responsive. Non-responsive. RADIATION DOSE: 10.70 CTDI (mGy) COMPARISON: No prior exams available for comparison. TECHNIQUE: Volumetric scanning was performed using a multirow detector CT scanner during bolus infus ion of 75 ml Visipaque 320 (iodixanol) nonionic water-soluble contrast as a cumulative dose for mult iple exams. The data was postprocessed with a variety of visualization algorithms including full-vo lume maximum intensity projection, multiplanar sliding thin-slab reformation, curved-planar reformati on, and surface-rendering techniques. Using automated exposure control and adjustment of the mA and/ or kV according to patient size, radiation dose was kept as low as reasonably achievable to obtain op timal diagnostic quality images. DICOM format image data is available electronically for review and comparison. FINDINGS: Aortic Arch: There is a three-vessel origin of the great vessels from the aorta. No evidence of ost ial narrowing. Intraluminal filling defect is identified in the proximal descending thoracic aorta ju st distal to the left subclavian artery aortic wall thickening is noted however there does not appear to be a clinically defined intimal flap. Right Carotid: Heavily calcified plaque is identified in the right carotid bifurcation extending int o the carotid bulb. There is moderate stenosis in the 50-60% range. Cervical segment of the internal carotid arteries otherwise patent. Left Carotid: Significant calcified plaque is identified in the left carotid bifurcation. There is n o evidence of hemodynamically significant stenosis. Vertebrals: The cervical segment of both vertebral arteries lack of flow and are presumably occluded . The right vertebral occlusion begins at approximately the C6 level. The left vertebral occlusion be gins just beyond its origin in the upper thoracic region. Both vessels reconstitute at approximately the C3 level. The right vertebral vessel appears to continue into PICA but demonstrates significantly diminished fl ow. The left vertebral artery continues and supplies the basilar artery. There is lack of flow in the bas ilar tip with very poor flow to the posterior cerebral arteries characteristic of a basilar tip throm bus. Percent stenosis is calculated using the diameter of the stenotic region over the diameter of the nor mal distal internal carotid artery. CONCLUSION: 1. Intraluminal thrombus within the proximal descending thoracic aorta 2. Bilateral vertebral artery occlusions from the proximal to the cervical segments. 3. Distal reconstitution of the vertebral arteries in the upper cervical spine. 4. Very diminished flow in the basilar artery which is small and appears contained thrombus within i ts basilar tip. 5. Moderate calcified plaque in the proximal right internal carotid artery with 50-60% diameter sten osis. 6. No sclerotic change in the left carotid without evidence of significant stenosis. Electronically signed by: Reno Vital MD 03/26/2018 6:51 PM EDT
[2018-03-26] MEDS ORDERED: Morphine Sulfate Inj 8 MG/ML Vial IV.PUSH ONE (19:32)
[2018-03-26] MEDS ORDERED: Morphine Inj 4 MG/ML Vial IV.PUSH ONE (19:32)
[2018-03-26 19:45] LABS: CKMB Percent 1.5 % (0.0-4.0); Creatine Kinase MB 15.5 ng/mL (0.5-3.6)
[2018-03-26 19:51] LABS: Troponin I 1.27 ng/mL (0.02-0.05)
[2018-03-26] MEDS ORDERED: Senna/Docusate Sodium 8.6/50 MG Tablet PO SCH (21:00)
[2018-03-26] MEDS ORDERED: Famotidine PF Inj 20 MG/2 ML Vial IV.PUSH SCH (21:00)
[2018-03-26] MEDS: Chlorhexidine 0.12% Oral Kit 15 ML UDC OROPHARYNG SCH (22:25)
[2018-03-26] MEDS ORDERED: Sodium Bicarbonate 8.4% Inj 50 MEQ/50 ML Syringe IV.CONT ONE (23:22)
[2018-03-26] MEDS ORDERED: Naloxone Inj 4 MG/10 ML MDV IV.PUSH ONE (23:22)
--- NOTE | 2018-03-26 23:28 | XR ---
EXAM DATE: 03/26/2018 11:24 PM EDT AGE/SEX: 82 years / Male INDICATIONS: Line placement. CLINICAL DATA: This is the patient's subsequent encounter. Patient reports that signs and symptoms h ave been present for 1 day and indicates a pain score of Nonresponsive. MEDICAL/SURGICAL HISTORY: Non-responsive. Non-responsive. [place] [facility] [place]. . FINDINGS: Improved aeration. Now very mild basilar atelectasis, mostly on the left. No pleural effusion is seen . No pneumothorax. Heart size stable, within normal limits. Thoracic aorta is tortuous. Endotracheal tube tip is approximately 4 cm above the charlette. Nasogastric tube has been placed, cours es into the stomach. There is also a new left subclavian central venous catheter with tip at the atri al caval junction. CONCLUSION: 1. New nasogastric tube and left subclavian central venous catheter with appropriate tip positions. 2. No pneumothorax. 3. Mild bibasilar atelectasis, improved. Electronically signed by: Juan J Gibson MD 03/26/2018 11:27 PM EDT
[2018-03-27] MEDS: Sod Chloride 0.9% Inj 1,000 ML IV.CONT SCH (02:46)
[2018-03-27] MEDS ORDERED: Chlorhexidine Gluconate 2% 1 Pack (2 Cloths) TOPICAL SCH (04:00)
[2018-03-27] MEDS ORDERED: Chlorhexidine Gluconate 2% 1 Pack (2 Cloths) TOPICAL PRN (04:00)
[2018-03-27] MEDS: Chlorhexidine 0.12% Oral Kit 15 ML UDC OROPHARYNG SCH ×2 (10:50→21:21)
--- NOTE | 2018-03-27 10:53 | P.PNCC ---
Subjective Subjective Remarks/Hospital Course: Hospital Course: This is an 82yM who comes in as a trauma alert for fall with injury. Per his , he was standing and trying to get up for "more coffee" when he suddenly became unstable and fell. She states he hit his head on the cabinet and he fell to the ground. His states that "his body pressed up against his head, and his neck was bent backwards in a very unnatural way." When EMS arrived, he was in cardiac arrest and ACLS was initiated. patient experienced 2 episodes of cardiac arrest in the [id number] setting, and then an additional 3rd episode in the ED. ROSC was obtained and the patient was placed on vasopressors. He was taken to CT scan which demonstrated C5 spinous process fracture and ligamentous injury at C5-6. he was then taken to MRI which demonstrated multiple posterior fossa acute ischemic events as well as acute cord contusion at C5. In addition, he was taken for CTA head/neck which demonstrated bilateral acutely thrombosed vertebral arteries with a basilar tip thrombus as well. When I evaluated the patient, his pupils were 2mm fixed and non-reactive. He has never received any sedating or paralyzing medications since EMS arrived. His GCS is 5 (E1V1M3) with flexor posturing of the lower extremities but no movement in the upper extremities to painful stimuli. He has no cough or gag. +corneals. I had multiple long discussions with his where I explained that he suffered a significant spinal cord injury, multiple significant strokes, and likely significant anoxic brain injury from multiple rounds of cardiac arrest. I explained medically aggressive therapy including anticoagulation or intervention for the strokes, neurology and neurosurgical consultation, and vasopressors and life support. The declined all these interventions, stating "he was clear that he would not want any of this." We discussed further, and she states his goals of care were clear and he did not wish to be placed on life support or have any sort of aggressive treatment in this case. At her request, we will not treat him aggressively, but will transition our goals to comfort and palliation. I have spoken again with Dr. Galvez from the emergency department who admitted the patient to my service who agrees that this constellation of symptoms is a terminal event for this 82 year old man, and agrees that palliation is appropriate. Subjective: 03/27: no changes. family flying in today and plan to withdraw care. Objective Vital Signs / I&O: Vital Signs 03/26/18 13:55 03/26/18 13:59 03/26/18 15:54 Temperature Pulse Rate 122 H Respiratory Rate 18 18 Blood Pressure 128/94 H Pulse Oximetry 99 100 100 03/26/18 16:44 03/26/18 17:00 03/26/18 20:00 Temperature 37.0 C Pulse Rate 102 H 93 H Respiratory Rate 23 23 21 Blood Pressure 119/91 H 93/58 L Pulse Oximetry 92 L 100 100 03/26/18 21:12 03/26/18 23:54 03/27/18 00:00 Temperature 37.2 C Pulse Rate 85 85 Respiratory Rate 18 20 19 Blood Pressure 108/77 Pulse Oximetry 100 100 03/27/18 03:42 03/27/18 04:00 03/27/18 08:00 Temperature 37.2 C 37.1 C Pulse Rate 84 94 H 94 H Respiratory Rate 18 21 Blood Pressure 109/48 L 101/60 Pulse Oximetry 100 100 100 03/27/18 08:28 Temperature Pulse Rate 95 H Respiratory Rate 18 Blood Pressure Pulse Oximetry 100 Intake & Output 03/26/18 03/27/18 03/27/18 18:59 06:59 18:59 Intake Total 1000 / 1000 1000 / 1000 Output Total 300 / 300 Balance 1000 / 1000 700 / 700 Weight 68.4 kg Intake: IV 1000 / 1000 1000 / 1000 NS Inj 1,000 ML @ 84 mls/hr IV. 1000 / 1000 CONT .[id number] SHRIA Rx#:[id number] LR 1000 mL Inj 1,000 ML @ 1000 1000 / 1000 mls/hr IV.SIG .Q1H SHIRA Rx#: [id number] Output: Urine Amount (Catheter) 300 / 300 Indwelling Urethral Catheter 300 / 300 Other: Weight On Admission 67 kg Result Diagrams: 03/26/18 13:10 03/26/18 13:10 Objective Remarks: gen: elderly male, lying in bed, unresponsive. heent: nc. at. pupils 2mm, equal, nonreactive. mucous membranes moist. neck: no jvd. trachea midline. c-collar in place chest: equal chest rise. PRVC. 40% fio2. peep 5. cv: tachycardic rate of 120, irregularly irregular rhythm. afib. on levophed at 10 mcg/min abd: soft, nontender, nondistended, no guarding. extr: distal pulses 2+. no edema. neuro: GCS 5 (E1V1M3). no movement to painful stimuli in the upper extremities. flexor posturing in the lower extremities. - cough. - gag. + corneals. 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 Very critically ill. 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 - DNR code status.
[2018-03-27] MEDS: Morphine Inj 4 MG/ML Vial IV.PUSH PRN ×2 (22:42→23:10)
[2018-03-27] MEDS ORDERED: Lidocaine 2% 100 MG/5 ML Syringe IV.PUSH ONE (23:22)
--- NOTE | 2018-03-28 05:59 | P.DN ---
Discharge Sum: Prov - Provider Primary care physician: UNKNOWN Admitting clinician: Kenan Tony Attending physician on admission: Kenan Tony Discharge Sum: Diag Discharge Sum: Summary - Date and Time Date of admission: 03/26/18 13:52 Date of : 03/27/18 Time of : 23:23 - Summary Details: This is an 82yM who comes in as a trauma alert for fall with injury. Per his , he was standing and trying to get up for "more coffee" when he suddenly became unstable and fell. She states he hit his head on the cabinet and he fell to the ground. His states that "his body pressed up against his head, and his neck was bent backwards in a very unnatural way." When EMS arrived, he was in cardiac arrest and ACLS was initiated. patient experienced 2 episodes of cardiac arrest in the [id number] setting, and then an additional 3rd episode in the ED. ROSC was obtained and the patient was placed on vasopressors. He was taken to CT scan which demonstrated C5 spinous process fracture and ligamentous injury at C5-6. he was then taken to MRI which demonstrated multiple posterior fossa acute ischemic events as well as acute cord contusion at C5. In addition, he was taken for CTA head/neck which demonstrated bilateral acutely thrombosed vertebral arteries with a basilar tip thrombus as well. When I evaluated the patient, his pupils were 2mm fixed and non-reactive. He has never received any sedating or paralyzing medications since EMS arrived. His GCS is 5 (E1V1M3) with flexor posturing of the lower extremities but no movement in the upper extremities to painful stimuli. He has no cough or gag. +corneals. I had multiple long discussions with his where I explained that he suffered a significant spinal cord injury, multiple significant strokes, and likely significant anoxic brain injury from multiple rounds of cardiac arrest. I explained medically aggressive therapy including anticoagulation or intervention for the strokes, neurology and neurosurgical consultation, and vasopressors and life support. The declined all these interventions, stating "he was clear that he would not want any of this." We discussed further, and she states his goals of care were clear and he did not wish to be placed on life support or have any sort of aggressive treatment in this case. At her request, we will not treat him aggressively, but will transition our goals to comfort and palliation. I have spoken again with Dr. Galvez from the emergency department who admitted the patient to my service who agrees that this constellation of symptoms is a terminal event for this 82 year old man, and agrees that palliation is appropriate. Patient was made comfortable , extubated, and with his family at bedside. - Additional Data Attending/PCP notified?: Yes Attending physician: Kenan Tony MD Hospice patient?: Yes
== END 2018-03-27 23:23 | disposition expired ==
LOC: NEPI 13:08 → NEDA 13:52 → EDBD 13:52 → N03 16:22
PROVIDERS: ADMIT Internal Medicine Critical Care Medicine; ATTEND Internal Medicine Critical Care Medicine